=== PATIENT | male | born 1980 | race Caucasian/White ===

== ENCOUNTER 2020-12-23 12:16 | Emergency (ER) | payer OTHER ==
[~2020-12-23 12:16] MED LIST: CYCLOBENZAPRINE10 MG PO; IBUPROFEN800 MG PO; PREDNISONE 20MG20 MG PO
[2020-12-23 15:53] LABS: BASOPHIL 0.4 % (0-2); EOSINOPHIL 1.6 % (0-5); HCT 46.3 % (42.0-52.0); HGB 15.1 g/dl (13.2-18.0); MCH 30.7 pg (25.0-31.0); MCHC 32.6 g/dL (32.0-36.0); MCV 94.1 fL (78.0-100.0); MONOCYTE 17.8 % (0-12); MPV 10.1 fL (6.0-9.5); NEUTROPHIL 65.8 % (41-80); NRBC 0; PLT 297 K/uL (150-400); RBC 4.92 M/uL (4.70-6.00); RDW 13.2 % (11.5-14.0)
[2020-12-23 15:56] LABS: ALBUMIN 3.6 g/dL (3.4-5.0); BILIRUBIN - TOTAL 0.3 mg/dL (0.2-1.0); BUN/CREAT RATIO (CALC) 23.9 RATIO; CREATININE 0.67 mg/dL (0.67-1.17); GLOBULIN (CALCULATION) 3.9 g/dL; POTASSIUM 5.2 mmol/L (3.5-5.1); TOTAL PROTEIN 7.5 g/dL (6.4-8.2)
[2020-12-23 16:06] LABS: BILIRUBIN NEGATIVE (NEGATIVE); BLOOD NEGATIVE Ery/uL (NEGATIVE); CLARITY CLEAR (CLEAR); COLOR YELLOW (YELLOW); GLUCOSE (U) NORMAL (NORMAL); LEUKOCYTES NEGATIVE Leu/uL (NEGATIVE); NITRITE NEGATIVE (NEGATIVE); PROTEIN NEGATIVE (NEGATIVE); SPECIFIC GRAVITY 1.025 (1.001-1.030); UROBILINOGEN 0.2 mg/dL (0.2-1.0)
[2020-12-23] MEDS ORDERED: PHENERGAN25 M1 PO (17:50)
[2020-12-23] MEDS ORDERED: OMEPRAZOLE 20MG20 MG PO (17:50)
[2020-12-23] MEDS ORDERED: REGLAN10 MG PO (17:50)
== END 2020-12-23 18:16 | disposition home or self-care (01) ==
LOC: FER 12:16
PROVIDERS: Emergency Medicine
DX: R11.2 Nausea with vomiting, unspecified (principal); R19.7 Diarrhea, unspecified; Z20.822 Contact with and (suspected) exposure to COVID-19
CPT/HCPCS: 36415; 80053; 81003; 82150; 83690; 85025; J2405; J7030; Q9967; U0002

== ENCOUNTER 2021-12-29 07:44 | Emergency (ER) | payer OTHER ==
[~2021-12-29 07:44] MED LIST changes: +OMEPRAZOLE 20MG20 MG PO; +PHENERGAN25 M1 PO; +REGLAN10 MG PO
[2021-12-29 08:25] LABS: EOSINOPHIL 3.3 % (0-5); HCT 43.2 % (42.0-52.0); HGB 14.6 g/dl (13.2-18.0); MCH 32.1 pg (25.0-31.0); MCHC 33.8 g/dL (32.0-36.0); MCV 94.9 fL (78.0-100.0); MPV 10.1 fL (6.0-9.5); NEUTROPHIL 53.3 % (41-80); NRBC 0; PLT 248 K/uL (150-400); RBC 4.55 M/uL (4.70-6.00); RDW 13.2 % (11.5-14.0)
[2021-12-29 08:35] LABS: INR 0.88 (0.9-1.2); PROTHROMBIN TIME 11.7 SECONDS (11.9-13.9); PTT 29.2 SECONDS (24.9-34.6)
[2021-12-29 09:15] LABS: BILIRUBIN NEGATIVE (NEGATIVE); BLOOD NEGATIVE Ery/uL (NEGATIVE); CLARITY CLEAR (CLEAR); COLOR YELLOW (YELLOW); GLUCOSE (U) NORMAL (NORMAL); LEUKOCYTES NEGATIVE Leu/uL (NEGATIVE); NITRITE NEGATIVE (NEGATIVE); PROTEIN NEGATIVE (NEGATIVE); UROBILINOGEN 0.2 mg/dL (0.2-1.0)
[2021-12-29 09:17] LABS: AMPHETAMINES NEGATIVE (NEGATIVE); BARBITURATES NEGATIVE (NEGATIVE); ECSTASY (MDMA) NEGATIVE (NEGATIVE); MARIJUANA (THC) NEGATIVE (NEGATIVE); METHADONE NEGATIVE (NEGATIVE); OPIATES NEGATIVE (NEGATIVE); OXYCODONE NEGATIVE (NEGATIVE)
[2021-12-29 09:37] LABS: INFLUENZA A NAA NEGATIVE (NEGATIVE)
[2021-12-29 09:38] LABS: CORONAVIRUS 2019 SARS-COV-2 POSITIVE (NEGATIVE)
[2021-12-29] MEDS ORDERED: NORCO 5-325 TA1 EACH PO (10:45)
[2021-12-29] MEDS ORDERED: PAXLOVID 300-11 EACH PO (10:49)
[2021-12-29] MEDS ORDERED: ONDANSETRON HCL4 MG PO (10:49)
[2021-12-29 11:01] LABS: ALBUMIN 3.9 g/dL (3.4-5.0); ALKALINE PHOSHATASE 113 U/L (46-116); ALT 60 U/L (16-63); AST 30 U/L (15-37); BILIRUBIN - TOTAL 0.3 mg/dL (0.2-1.0); BUN 18 mg/dL (7-18); BUN/CREAT RATIO (CALC) 22.5 RATIO; CHLORIDE 99 mmol/L (98-107); CO2 (BICARBONATE) 25 mmol/L (21-32); GLOBULIN (CALCULATION) 4.3 g/dL; GLUCOSE 112 mg/dL (74-106); LIPASE 167 U/L (73-393); POTASSIUM 3.9 mmol/L (3.5-5.1); TOTAL PROTEIN 8.2 g/dL (6.4-8.2)
== END 2021-12-29 11:50 | disposition home or self-care (01) ==
LOC: FER 07:44
PROVIDERS: Internal Medicine
DX: U07.1 COVID-19 (principal); K42.9 Umbilical hernia without obstruction or gangrene; F17.210 Nicotine dependence, cigarettes, uncomplicated; Z28.310 Unvaccinated for COVID-19
CPT/HCPCS: 36415; 80053; 80305; 81003; 82140; 83690; 84145; 85025; 85610; 85730; G0480; U0002